=== PATIENT | female | born 1965 | race Caucasian/White ===

== ENCOUNTER → 2021-02-17 | Day surgery (SDC) | payer OTHER ==
[~2021-02-17] VITALS: Ht 162.6 cm; Wt 49.9 kg
[~2021-02-17] MED LIST: ACETAMINOPHEN500 M1 PO; COLACE100 MG PO; ELIQUIS2.5 MG PO; MOTRIN600 MG PO; OXY-IR 5MG5 MG PO; PERCOCET 5-3251 EACH PO; ZESTRIL40 MG PO
[2021-02-17 08:07] LABS: BUN/CREAT RATIO (CALC) 11.3 RATIO; CREATININE 0.62 mg/dL (0.51-0.95)
== END | disposition home or self-care (01) ==
LOC: FAS 07:02
PROVIDERS: Anesthesiology
DX: N60.91 Unspecified benign mammary dysplasia of right breast (principal); I10 Essential (primary) hypertension; F17.210 Nicotine dependence, cigarettes, uncomplicated; F10.20 Alcohol dependence, uncomplicated; D64.9 Anemia, unspecified; H91.93 Unspecified hearing loss, bilateral; Z78.0 Asymptomatic menopausal state
CPT/HCPCS: 36415; 76098; 77065; 80048; J1100; J1170; J1644; J1885; J2250; J2405; J2704; J3010; J7120

== ENCOUNTER 2021-04-23 15:38 | Inpatient (IN) | payer OTHER ==
[~2021-04-23] VITALS: Ht 163 cm; Wt 54.0 kg
[2021-04-23 18:30] LABS: BASOPHIL 0.4 % (0-2); EOSINOPHIL 0.4 % (0-5); HCT 41.5 % (37.0-47.0); HGB 13.8 g/dl (12.5-16.0); LYMPHOCYTE 7.9 % (15-48); MCH 31.2 pg (25.0-31.0); MCHC 33.3 g/dL (32.0-36.0); MCV 93.7 fL (78.0-100.0); MONOCYTE 4.1 % (0-12); MPV 8.3 fL (6.0-9.5); NRBC 0; PLT 496 K/uL (150-400); RBC 4.43 M/uL (4.20-5.40); RDW 12.9 % (11.5-14.0); WBC 23.9 K/uL (4.0-10.5)
[2021-04-23 18:36] LABS: NEUTROPHIL 85.8 % (41-80)
[2021-04-23 19:00] LABS: ALBUMIN 4.3 g/dL (3.4-5.0); BILIRUBIN - TOTAL 0.4 mg/dL (0.2-1.0); BUN/CREAT RATIO (CALC) 7.5 RATIO; CREATININE 1.2 mg/dL (0.51-0.95); POTASSIUM 4.1 mmol/L (3.5-5.1); TOTAL PROTEIN 9.3 g/dL (6.4-8.2)
[2021-04-23 19:33] LABS: LACTIC ACID 1.9 mmol/L (0.4-1.9)
[2021-04-23 21:17] LABS: INR 0.9 (0.9-1.2); PROTHROMBIN TIME 11.6 SECONDS (11.8-13.4)
[2021-04-24 06:29] LABS: BILIRUBIN NEGATIVE (NEGATIVE); BLOOD NEGATIVE Ery/uL (NEGATIVE); CLARITY CLEAR (CLEAR); COLOR YELLOW (YELLOW); GLUCOSE (U) NORMAL (NORMAL); LEUKOCYTES TRACE Leu/uL (NEGATIVE); NITRITE NEGATIVE (NEGATIVE); PROTEIN NEGATIVE (NEGATIVE); SPECIFIC GRAVITY <=1.005 (1.001-1.030); UROBILINOGEN 0.2 mg/dL (0.2-1.0)
[2021-04-24 06:35] LABS: BASOPHIL 0.2 % (0-2); EOSINOPHIL 0.1 % (0-5); HCT 39.1 % (37.0-47.0); HGB 12.9 g/dl (12.5-16.0); LYMPHOCYTE 10.3 % (15-48); MCH 30.5 pg (25.0-31.0); MCV 92.4 fL (78.0-100.0); MONOCYTE 7.6 % (0-12); MPV 8.1 fL (6.0-9.5); NEUTROPHIL 81.2 % (41-80); NRBC 0; PLT 451 K/uL (150-400); RBC 4.23 M/uL (4.20-5.40); RDW 12.9 % (11.5-14.0); WBC 15.9 K/uL (4.0-10.5)
[2021-04-24 06:48] LABS: BACTERIA TRACE
[2021-04-24 06:57] LABS: BUN/CREAT RATIO (CALC) 13.9 RATIO; CREATININE 0.72 mg/dL (0.51-0.95); POTASSIUM 3.7 mmol/L (3.5-5.1)
--- NOTE | 2021-04-24 17:26 | NUR ---
THIS RN CALLED IMAGING DEPARTMENT AT 1530 TO INQUIRE ABOUT READING OF KUB OBTAINED AT 1410 TODAY. SPOKE WITH REGIONAL PROJECT MANAGER, TONY. STARLA STATED FILMS HAD NOT BEEN READ AND HE WAS GOING TO CALL RADIOLOGIST ABOUT READING FILMS. DR BETHEA CALLED THIS RN IMMEDIATELY FOLLOWING PREVIOUS PHONE CALL AND REQUESTED NUMBER FOR RADIOLOGY. ADVISED DR BETHEA, THIS RN HAD JUST SPOKEN TO RADIOLOGY ABOUT FILMS. DR BETHEA CALLED RADIOLOGY AND CALLED THIS RN TO ADVISE IT WAS REQUESTED HE CALL BACK IN 20 MINUTES. RN SPOKE WITH PATIENT'S SISTER AND SON TO ADVISE KUB RESULTS WOULD BE AVAILABLE SOON. DR BETHEA CALLED APPROXIMATELY 20 MINUTES LATER AT 1600 TO STATE CONTRAST WAS STILL IN SMALL BOWEL AND REPEAT FILMS WERE ORDERED FOR 17[address] TODAY. RN ADVISED DR BETHEA, PATIENT HAD IMMEDIATELY BECOME NAUSEATED AND VOMITED 50ML OF GREEN LIQUID WITH ADMINISTRATION OF GASTROGAFFIN VIA NG TUBE. ALSO ADVISED DR BETHEA THAT PATIENT'S ABDOMEN NOTED TO BE DISTENDED AFTER ADMINISTRATION OF GASTROGAFFIN BUT BY TIME FIRST FILM RESULTS, PATIENT'S ABDOMEN WAS FLAT.RN ADVISED DR BETHEA WILL KEEP PATIENT OFF OF NG SUCTION UNTIL HE ADVISES OTHERWISE.
--- NOTE | 2021-04-24 18:26 | NUR ---
TELEPHONE CALL FROM DR BETHEA AFTER RESULTS OF [address]ND KUB[address] DR BETHEA ASKED FOR PATIENT'S NG TUBE TO BE RECONNECTED TO LOW INTERMITTEN WALL SUCTION AND REPEAT KUB IN THE MORNING. RN CALLED PATIENT'S SON, BRITTANY TO ADVISE OF MOST RECENT TEST RESULTS PER REQUEST
[2021-04-25 04:34] LABS: BASOPHIL 0.1 % (0-2); EOSINOPHIL 0.1 % (0-5); HCT 37.7 % (37.0-47.0); HGB 12.6 g/dl (12.5-16.0); MCHC 33.4 g/dL (32.0-36.0); MCV 92.6 fL (78.0-100.0); MONOCYTE 8.3 % (0-12); MPV 8.3 fL (6.0-9.5); NEUTROPHIL 80.9 % (41-80); NRBC 0; PLT 424 K/uL (150-400); RBC 4.07 M/uL (4.20-5.40); RDW 13.2 % (11.5-14.0); WBC 14.2 K/uL (4.0-10.5)
[2021-04-25 04:55] LABS: ALBUMIN 3.3 g/dL (3.4-5.0); BILIRUBIN - TOTAL 0.3 mg/dL (0.2-1.0); BUN/CREAT RATIO (CALC) 9.9 RATIO; CREATININE 1.41 mg/dL (0.51-0.95); POTASSIUM 3.3 mmol/L (3.5-5.1)
[2021-04-25 04:57] LABS: TOTAL PROTEIN 7.3 g/dL (6.4-8.2)
[2021-04-25 12:35] LABS: BILIRUBIN 1+ mg/dL (NEGATIVE); BLOOD NEGATIVE Ery/uL (NEGATIVE); CLARITY CLEAR (CLEAR); COLOR YELLOW (YELLOW); GLUCOSE (U) NORMAL (NORMAL); LEUKOCYTES NEGATIVE Leu/uL (NEGATIVE); NITRITE NEGATIVE (NEGATIVE); PROTEIN TRACE (LOW) mg/dL (NEGATIVE); SPECIFIC GRAVITY 1.025 (1.001-1.030); UROBILINOGEN 0.2 mg/dL (0.2-1.0); pH 5.5 (5.0-9.0)
[2021-04-26 06:07] LABS: BASOPHIL 0.1 % (0-2); EOSINOPHIL 0.1 % (0-5); HCT 33.8 % (37.0-47.0); HGB 11.2 g/dl (12.5-16.0); LYMPHOCYTE 9.4 % (15-48); MCHC 33.1 g/dL (32.0-36.0); MCV 93.6 fL (78.0-100.0); MONOCYTE 11.6 % (0-12); MPV 8.4 fL (6.0-9.5); NEUTROPHIL 78.3 % (41-80); NRBC 0; PLT 371 K/uL (150-400); RBC 3.61 M/uL (4.20-5.40); RDW 13.1 % (11.5-14.0); WBC 15.1 K/uL (4.0-10.5)
[2021-04-26 06:29] LABS: BUN/CREAT RATIO (CALC) 14.3 RATIO; CREATININE 0.63 mg/dL (0.51-0.95)
--- NOTE | 2021-04-26 15:24 | NUR ---
CALLI AND GEORGE DC'ED AT 1528
[2021-04-27 07:07] LABS: BASOPHIL 0.2 % (0-2); EOSINOPHIL 0.7 % (0-5); HCT 30.9 % (37.0-47.0); HGB 10.1 g/dl (12.5-16.0); LYMPHOCYTE 15.8 % (15-48); MCH 31.1 pg (25.0-31.0); MCHC 32.7 g/dL (32.0-36.0); MCV 95.1 fL (78.0-100.0); MONOCYTE 11.3 % (0-12); MPV 8.5 fL (6.0-9.5); NEUTROPHIL 71.4 % (41-80); PLT 329 K/uL (150-400); RBC 3.25 M/uL (4.20-5.40); WBC 9.6 K/uL (4.0-10.5)
[2021-04-27 07:28] LABS: BUN/CREAT RATIO (CALC) 5.7 RATIO; CREATININE 0.53 mg/dL (0.51-0.95); POTASSIUM 3.7 mmol/L (3.5-5.1)
--- NOTE | 2021-04-27 11:47 | NUR ---
04/27 Ms. Ayala lives alone. She has one adult son. Ms. Ayala was independent in the home and community prior to admission. Ms. Ayala does not receive pay when she is not working. She is expecting to be off from work for 2 - 4 weeks. Ms. Ayala is concerned about meeting her financial obligations. She was educated to [employer], [facility] and [employer].
--- NOTE | 2021-04-29 13:04 | NUR ---
SPOKE WITH DR MONTES ABOUT PATIENT ONLY BEING ON FULL LIQUID AND STILL USING OXYGEN AT NIGHT BUT DOES NOT DESAT DURING THE DAY AND IS ROOM AIR TODAY WITH O2 SATS ABOVE 92% EVEN WHILE WALKING. STATED OK TO SEND HOME
== END 2021-04-29 13:40 | disposition home or self-care (01) | DRG 335 ==
LOC: FER 15:38 → FMS 21:08
PROVIDERS: Hospitalist; Nurse Practitioner; Physician Assistant; Surgery; ADMIT Allergy & Immunology Allergy
PROC: 0DN80ZZ Release Small Intestine, Open Approach (ICD-10-PCS; principal; 2021-04-25 12:00)
DX: K56.51 Intestinal adhesions [bands], with partial obstruction (principal); R65.11 Systemic inflammatory response syndrome (SIRS) of non-infectious origin with acute organ dysfunction; N17.9 Acute kidney failure, unspecified; E87.1 Hypo-osmolality and hyponatremia; Z20.822 Contact with and (suspected) exposure to COVID-19; I10 Essential (primary) hypertension; K56.7 Ileus, unspecified; E86.1 Hypovolemia; F17.210 Nicotine dependence, cigarettes, uncomplicated; Z98.51 Tubal ligation status; Z98.890 Other specified postprocedural states; Z79.899 Other long term (current) drug therapy; Z80.1 Family history of malignant neoplasm of trachea, bronchus and lung; Z84.1 Family history of disorders of kidney and ureter
CPT/HCPCS: 36415; 71045; 74018; 80048; 80053; 81001; 83605; 83690; 83735; 84484; 85025; 85610; 87088; 93005; C1765; C9113; J0360; J1100; J1170; J1650; J2250; J2270; J2405; J2543; J2704; J2710; J3010; J3480; J3490; J7030; J7120; Q9967; U0002